=== PATIENT | female | born 1945 | race Caucasian/White ===

== ENCOUNTER → 2017-05-23 08:07 | Outpatient (CLI) | payer MEDICARE | END | disposition home or self-care (01) | LOC: D.US 08:07 | DX: N18.3 Chronic kidney disease, stage 3 (moderate) (principal); R80.9 Proteinuria, unspecified; Z68.27 Body mass index [BMI] 27.0-27.9, adult ==

== ENCOUNTER 2017-11-23 16:16 | Inpatient (IN) | payer MEDICARE ==
[~2017-11-23] VITALS: Ht 167.6 cm; Wt 84.4 kg
[2017-11-23 16:44] LABS: BASOPHILS 0.1 % (0-2); EOSINOPHILS 1.2 % (0-7); HEMATOCRIT 35.6 % (36.0-48.0); HEMOGLOBIN 10.9 g/dL (12-16); IMMATURE GRANULOCYTES 0.8 % (0-5); LYMPHOCYTES 22.9 % (15-50); MCHC 30.6 g/dL (31.0-37.0); MCV 91.5 fL (80.0-100.0); MEAN PLATELET VOLUME 11.3 fL (7.4-10.4); PLATELET COUNT 188 10x3/uL (130-400); RBC 3.89 10x6/uL (4.00-5.40); RDW 18.8 % (11.5-14.5); WBC 8.4 10x3/uL (4.8-10.8)
[2017-11-23 17:18] LABS: ALBUMIN 2.7 g/dL (3.4-5.0); ALKALINE PHOSPHATASE 108 U/L (46-116); ALT (SGPT) 50 U/L (10-68); CALC OSMOLALITY 301 mosm/kg (275-300); CALCIUM 8.2 mg/dL (8.5-10.1); CARBON DIOXIDE 26.3 mmol/L (21.0-32.0); CHLORIDE - SERUM 107 mmol/L (98-107); CREATININE - SERUM 2.1 mg/dL (0.6-1.3); GLUCOSE 127 mg/dL (74-106); POTASSIUM - SERUM 4.1 mmol/L (3.5-5.1); PROTEIN - SERUM 6.3 g/dL (6.4-8.2); SODIUM 143 mmol/L (136-145); UREA NITROGEN 55 mg/dL (7-18); eGFR NON AFRICAN AMERICAN 24 mL/min (90-120)
[2017-11-23 17:27] LABS: CREATINE KINASE 92 UL (21-215); PRO BNP 4024 pg/mL (0-125); TROPONIN-I < 0.017 ng/mL (0.000-0.060)
[2017-11-23] MEDS ORDERED: ANORO ELLIPTA1 EACH INH (19:47)
[2017-11-23] MEDS ORDERED: NEURONTIN 300300 MG PO ×2 (19:48)
[2017-11-23] MEDS ORDERED: HYDRALAZINE HCL50 MG PO (19:49)
[2017-11-23] MEDS ORDERED: REMERON15 MG PO (19:49)
[2017-11-23] MEDS ORDERED: LIPITOR20 MG PO (19:49)
[2017-11-23] MEDS ORDERED: COUMADIN3 MG PO (19:50)
[2017-11-23] MEDS ORDERED: FUROSEMIDE20 MG PO (19:50)
[2017-11-23] MEDS ORDERED: COUMADIN1 MG PO (19:52)
[2017-11-23] MEDS ORDERED: COREG25 MG PO (19:52)
[2017-11-23] MEDS ORDERED: MULTI-DAY VITAM1 TAB PO (19:53)
[2017-11-23] MEDS ORDERED: BAYER CHEWABLE81 MG PO (19:53)
[2017-11-23] MEDS ORDERED: CULTURELLE1 CAP PO (19:53)
[2017-11-23] MEDS ORDERED: CATAPRES0.2 MG PO (19:55)
[2017-11-23] MEDS ORDERED: MECLIZINE HCL25 MG PO (19:55)
[2017-11-23 22:43] VITALS: BMI 29.1
[2017-11-24] VITALS: BP 148/44
[2017-11-24 04:00] VITALS: BP 162/60
[2017-11-24 08:26] VITALS: BP 165/112
[2017-11-24 11:37] VITALS: BP 171/65
[2017-11-24 12:54] LABS: BASOPHILS 0.1 % (0-2); EOSINOPHILS 1.3 % (0-7); HEMATOCRIT 32.5 % (36.0-48.0); HEMOGLOBIN 9.8 g/dL (12-16); IMMATURE GRANULOCYTES 0.6 % (0-5); LYMPHOCYTES 21.1 % (15-50); MCH 27.5 pg (26.0-34.0); MCHC 30.2 g/dL (31.0-37.0); MEAN PLATELET VOLUME 11.2 fL (7.4-10.4); MONOCYTES 8.8 % (2-11); NEUTROPHILS 68.1 % (40-80); PLATELET COUNT 164 10x3/uL (130-400); RBC 3.57 10x6/uL (4.00-5.40); RDW 18.9 % (11.5-14.5); WBC 6.8 10x3/uL (4.8-10.8)
[2017-11-24 13:10] LABS: ALBUMIN 2.3 g/dL (3.4-5.0); ANION GAP 10.6 mmol/L (8-16); BILIRUBIN - TOTAL 0.25 mg/dL (0.2-1.3); CALCIUM 8.5 mg/dL (8.5-10.1); CARBON DIOXIDE 28.4 mmol/L (21.0-32.0); CREATININE - SERUM 2.1 mg/dL (0.6-1.3); PROTEIN - SERUM 5.6 g/dL (6.4-8.2)
[2017-11-24 16:53] VITALS: BP 180/70
[2017-11-24 22:30] VITALS: BP 190/73
[2017-11-25 00:30] VITALS: BP 191/74
[2017-11-25 04:30] VITALS: BP 182/71
[2017-11-25 04:34] LABS: BASOPHILS 0.1 % (0-2); EOSINOPHILS 1.1 % (0-7); HEMATOCRIT 32.1 % (36.0-48.0); HEMOGLOBIN 9.7 g/dL (12-16); IMMATURE GRANULOCYTES 0.7 % (0-5); LYMPHOCYTES 25.2 % (15-50); MCH 27.5 pg (26.0-34.0); MCHC 30.2 g/dL (31.0-37.0); MCV 90.9 fL (80.0-100.0); MONOCYTES 6.6 % (2-11); NEUTROPHILS 66.3 % (40-80); PLATELET COUNT 153 10x3/uL (130-400); RBC 3.53 10x6/uL (4.00-5.40); RDW 18.7 % (11.5-14.5); WBC 7.2 10x3/uL (4.8-10.8)
[2017-11-25 05:11] LABS: ALBUMIN 2.1 g/dL (3.4-5.0); BILIRUBIN - TOTAL 0.2 mg/dL (0.2-1.3); CALCIUM 8.1 mg/dL (8.5-10.1); CARBON DIOXIDE 28.2 mmol/L (21.0-32.0); CREATININE - SERUM 2.2 mg/dL (0.6-1.3); POTASSIUM - SERUM 4.2 mmol/L (3.5-5.1); PROTEIN - SERUM 5.3 g/dL (6.4-8.2)
[2017-11-25 09:29] VITALS: BP 175/63
[2017-11-25 12:23] VITALS: BP 144/58
[2017-11-25 12:39] VITALS: Ht 167.6 cm; Wt 84.4 kg
[2017-11-25 15:25] LABS: CREATININE - URINE 55.1 mg/dL (30-125)
[2017-11-25 15:28] LABS: APPEARANCE CLEAR (CLEAR); BILIRUBIN NEGATIVE (NEGATIVE); COLOR YELLOW (YELLOW); GLUCOSE 100 mg/dL (NEGATIVE); KETONE NEGATIVE (NEGATIVE); NITRITE NEGATIVE (NEGATIVE); PROTEIN 1+ mg/dL (NEGATIVE); SPECIFIC GRAVITY 1.015 (1.005-1.020); UROBILINOGEN NORMAL (NORMAL)
[2017-11-25 15:32] LABS: PRO/CRE RATIO URINE 15.9 mg/g; PROTEIN - URINE 877.5 mg/dL (0.0-11.9)
[2017-11-25 15:56] VITALS: BP 179/64
[2017-11-25 19:00] VITALS: BP 163/68
[2017-11-26] VITALS: BP 144/76
[2017-11-26 04:00] VITALS: BP 176/74
[2017-11-26 04:29] LABS: BASOPHILS 0.1 % (0-2); IMMATURE GRANULOCYTES 0.8 % (0-5); LYMPHOCYTES 22.4 % (15-50); MCH 27.8 pg (26.0-34.0); MCHC 30.3 g/dL (31.0-37.0); MCV 91.7 fL (80.0-100.0); MEAN PLATELET VOLUME 11.1 fL (7.4-10.4); MONOCYTES 7.8 % (2-11); NEUTROPHILS 67.9 % (40-80); PLATELET COUNT 162 10x3/uL (130-400); RDW 18.3 % (11.5-14.5); WBC 7.8 10x3/uL (4.8-10.8)
[2017-11-26 04:50] LABS: ANION GAP 12.2 mmol/L (8-16); CALCIUM 7.7 mg/dL (8.5-10.1); CARBON DIOXIDE 27.9 mmol/L (21.0-32.0); CREATININE - SERUM 2.5 mg/dL (0.6-1.3); PHOSPHOROUS 4.3 mg/dL (2.5-4.9); POTASSIUM - SERUM 4.1 mmol/L (3.5-5.1)
[2017-11-26 08:06] VITALS: BP 186/80
[2017-11-26] MEDS ORDERED: FUROSEMIDE20 MG PO (09:59)
== END 2017-11-26 12:44 | disposition home or self-care (01) | DRG 291 ==
LOC: D.ER 16:16 → D.M2 18:06 → D.EDHOLD 18:06 → D.M2 19:06
PROVIDERS: Emergency Medicine; Family Medicine; Internal Medicine Nephrology
DX: I13.0 Hypertensive heart and chronic kidney disease with heart failure and stage 1 through stage 4 chronic kidney disease, or unspecified chronic kidney disease (principal); I50.21 Acute systolic (congestive) heart failure; N18.4 Chronic kidney disease, stage 4 (severe); N17.9 Acute kidney failure, unspecified; D68.9 Coagulation defect, unspecified; I48.91 Unspecified atrial fibrillation; Z79.01 Long term (current) use of anticoagulants; E78.5 Hyperlipidemia, unspecified